=== PATIENT | male | born 1980 | race Caucasian/White ===

== ENCOUNTER 2016-09-24 18:49 | Emergency (ER) | payer OTHER ==
[2016-09-24 19:06] VITALS: BP 130/77
--- NOTE | 2016-09-24 19:27 | ER Document Report ---
ED Medical Screen (RME) - General Chief Complaint: Pain With Urination Stated Complaint: BURING WITH URINATION Notes: This 36-year-old [employer] comes emergency room complaining of burning on urination, dark urine despite drinking plenty of water, and generalized weakness. There is some nausea with no vomiting or diarrhea. Symptoms started about 3 hours ago. He initially had dark brown urine, then noticed the urine was cloudy and thick and painful running all the way through the urethra to the prostate. I have greeted and performed a rapid initial assessment of this patient. A comprehensive ED assessment and evaluation of the patient, analysis of test results and completion of the medical decision making process will be conducted by additional ED providers. TRAVEL OUTSIDE OF THE [place] IN LAST 30 DAYS: No - Related Data Allergies/Adverse Reactions: No Known Allergies Allergy (Verified 09/24/16 19:25) Past Medical History Renal/ Medical History: Denies: Hx Peritoneal Dialysis - Immunizations Immunizations up to date: Yes Physical Exam - Vital signs Vitals: Temp Pulse Resp BP Pulse Ox 98.2 F 78 14 130/77 H 99 09/24/16 19:02 09/24/16 19:02 09/24/16 19:02 09/24/16 19:02 09/24/16 19:02 Course - Vital Signs Vital signs: Temp Pulse Resp BP Pulse Ox 98.2 F 78 14 130/77 H 99 09/24/16 19:02 09/24/16 19:02 09/24/16 19:02 09/24/16 19:02 09/24/16 19:02
[2016-09-24 19:49] LABS: APPEARANCE,URINE SLIGHTLY-CLOUDY; BILIRUBIN,URINE NEGATIVE (NEGATIVE); GLUCOSE, URINE NEGATIVE (NEGATIVE); KETONES,URINE NEGATIVE (NEGATIVE); LEUKOCYTE ESTERASE,URINE NEGATIVE (NEGATIVE); NITRITE,URINE NEGATIVE (NEGATIVE); PROTEIN,URINE NEGATIVE (NEGATIVE); URINE SPECIFIC GRAVITY 1.024; UROBILINOGEN,URINE NEGATIVE mg/dL (<2.0)
--- NOTE | 2016-09-24 21:23 | ER Document Report ---
ED GI/ - General Chief Complaint: Pain With Urination Stated Complaint: BURING WITH URINATION Mode of Arrival: Ambulatory Information source: Patient Notes: 36 y/o well appearing Male presents to ED c/o dysuria and dark urine. Pt reports noted dark brown/tea colored urine this afternoon with associated dysuria, mild nausea, and generalized weakness. Reports during subsequent episode of urination noted urine was donor processor in color but appeared cloudy and thick and dysuria persisted. Reports donated blood yesterday but has not had an increase in activity or decreased PO fluid intake. Reports is sexually active in monogamous relationship with spouse. Denies fever, vomiting, penile discharge , flank pain, testicular pain or swelling. TRAVEL OUTSIDE OF THE [place] IN LAST 30 DAYS: No - HPI Patient complains to provider of: Dysuria Onset: This afternoon Timing/Duration: Intermittent, Better Quality of pain: Burning Severity at maximum: Moderate Severity in ED: Mild Pain Level: 2 Sexual history: Active, Unprotected intercourse. denies: New partner, Multiple partners Associated symptoms: Dysuria, Nausea. denies: Hematospermia, Penile discharge Similar symptoms previously: No Recently seen / treated by doctor: No - Related Data Allergies/Adverse Reactions: No Known Allergies Allergy (Verified 09/24/16 19:25) Home Medications: Current Home Medications No Home Medications 09/24/16 [History] Past Medical History - General Information source: Patient - Social History Smoking Status: Never Smoker Frequency of alcohol use: Rare Drug Abuse: None Lives with: Family Family History: Reviewed & Not Pertinent Patient has suicidal ideation: No Patient has homicidal ideation: No - Medical History Medical History: Negative Renal/ Medical History: Denies: Hx Peritoneal Dialysis Surgical Hx: Negative - Immunizations Immunizations up to date: Yes Hx Diphtheria, Pertussis, Tetanus Vaccination: Yes Review of Systems - Review of Systems Constitutional: See HPI EENT: No symptoms reported Cardiovascular: No symptoms reported Respiratory: No symptoms reported Gastrointestinal: No symptoms reported Genitourinary: See HPI Male Genitourinary: No symptoms reported Musculoskeletal: No symptoms reported Skin: No symptoms reported Hematologic/Lymphatic: No symptoms reported Neurological/Psychological: No symptoms reported -: Yes All other systems reviewed and negative Physical Exam - Vital signs Vitals: Temp Pulse Resp BP Pulse Ox 98.2 F 78 14 130/77 H 99 09/24/16 19:02 09/24/16 19:02 09/24/16 19:02 09/24/16 19:02 09/24/16 19:02 Interpretation: Normal - General General appearance: Appears well, Alert In distress: None - HEENT Head: Normocephalic, Atraumatic Eyes: Normal Pupils: PERRL - Respiratory Respiratory status: No respiratory distress Chest status: Nontender Breath sounds: Normal Chest palpation: Normal - Cardiovascular Rhythm: Regular Heart sounds: Normal auscultation Murmur: No Pulses: Normal: Radial Normal capillary refill: Yes - Abdominal Inspection: Normal Distension: No distension Bowel sounds: Normal Tenderness: Nontender. No: Tender, McBurney's point, Junior's sign, Guarding, Rebound, Other Organomegaly: No organomegaly - Genitourinary Inspection: Normal. No: Blood at meatus, Penile discharge Tenderness: Nontender. No: Testicle tender, Epididymis tender Cremasteric reflex: Normal Scrotum: Normal. No: Swelling, Redness, Hot to touch - Back Back: Normal, Nontender. No: CVA tenderness - Extremities General upper extremity: Normal inspection, Nontender, Normal color, Normal ROM , Normal temperature General lower extremity: Normal inspection, Nontender, Normal color, Normal ROM , Normal temperature, Normal weight bearing. No: Onur's sign - Neurological Neuro grossly intact: Yes Cognition: Normal Orientation: AAOx4 Mandie Coma Scale Eye Opening: Spontaneous [place] Coma Scale Verbal: Oriented Mandie Coma Scale Motor: Obeys Commands [place] Coma Scale Total: 15 Speech: Normal Motor strength normal: LUE, RUE, LLE, RLE Sensory: Normal - Psychological Associated symptoms: Normal affect, Normal mood - Skin Skin Temperature: Warm Skin Moisture: Dry Skin Color: Normal Course - Re-evaluation Re-evalutation: 09/24/16 23:50 Patient hemodynamically stable, in no distress, afebrile, neurologically intact. Patient tolerating oral fluids without difficulty or vomiting. Patient 's labs unremarkable and Chlamydia/gonorrhea negative. No suggestion rhabdomyolysis. physical exam unremarkable. Will treat for possible mild nonspecific urethritis at this time and provided contact information for follow- up with urology. Patient appears stable for discharge and agrees with home care , follow-up, and ED return precautions. Patient presentation, findings, and plan discussed with ED physician Dr. Armas who concurs with evaluation and treatment. - Vital Signs Vital signs: Temp Pulse Resp BP Pulse Ox 98.2 F 78 14 130/77 H 99 09/24/16 19:02 09/24/16 19:02 09/24/16 19:02 09/24/16 19:02 09/24/16 19:02 - Laboratory Result Diagrams: 09/24/16 21:10 Discharge - Discharge Clinical Impression: Dysuria, Urethritis, nonspecific Condition: Stable Disposition: HOME, SELF-CARE Instructions: Normal Exam and Workup ([facility]), Azithromycin ([facility]) Additional Instructions: Your results today were negative for urinary tract infection or sexually transmitted disease and your kidney function laboratory tests were normal. Drink plenty of fluids. Follow-up with your primary care provider and urology this week. Return to the emergency department for any worsening symptoms or concerns. Forms: Elevated Blood Pressure, Return to Work Referrals: [facility] [Provider Group] - Follow up in 3-5 days
[2016-09-24 21:43] LABS: ALANINE AMINOTRANSFERASE 34 U/L (21-72); ALBUMIN 4.6 g/dL (3.5-5.0); ALKALINE PHOSPHATASE 71 U/L (38-126); ANION GAP 13 (5-19); ASPARTATE AMINO TRANSFERASE 19 U/L (17-59); BLOOD UREA NITROGEN 13 mg/dL (7-20); CALCIUM 9.9 mg/dL (8.4-10.2); CARBON DIOXIDE 29 mmol/L (22-30); CHLORIDE 100 mmol/L (98-107); CREATINE KINASE 65 U/L (55-170); CREATININE RESULT 0.85 mg/dL (0.52-1.25); GLUCOSE 98 mg/dL (75-110); POTASSIUM 4.5 mmol/L (3.6-5.0); SODIUM 141.8 mmol/L (137-145)
[2016-09-24 22:54] LABS: CHLAM PCR NOT DETECTED (NOT DETECT)
[2016-09-25] MEDS ORDERED: AZITHROMYCIN 250 MG TABLET PO ONE (00:02)
== END 2016-09-25 00:26 | disposition home or self-care (01) ==
LOC: ER 18:49
DX: R30.0 Dysuria (principal); N34.1 Nonspecific urethritis; R11.0 Nausea; R53.1 Weakness
CPT/HCPCS: 36415; 80053; 81001; 82550; 87086; 87491; 87591; 99285

== ENCOUNTER → 2018-01-29 | Day surgery (SDC) | payer OTHER ==
--- NOTE | 2018-01-29 16:30 | RADIOLOGY REPORT (SQ) ---
EXAM DESCRIPTION: ARTHRO HIP INJ W/ANESTHESIA; FLUORO/NEEDLE PLACEMENT COMPLETED DATE/TIME: 01/29/2018 4:12 pm REASON FOR STUDY: PAIN IN LEFT HIP COMPARISON: None. FLUOROSCOPY TIME: 0.64 minutes. 1 images saved to PACS. LIMITATIONS: None. PROCEDURE: Procedure, risks, benefits and alternatives explained to patient who then gave written c onsent. The left hip was marked and a time-out was called for correct marking verification. Entry s ite marked using fluoroscopic guidance. Hip prepped and draped using sterile technique. Local anes thesia achieved using 1% lidocaine injection. Hypodermic needle introduced into the joint space und er direct fluoroscopic visualization. Non-ionic contrast instilled to confirm intra-articular positi on. Dilute gadolinium solution then injected. Needle removed and entry site covered with sterile b andage. No immediate complications noted. TECHNIQUE: Digital images acquired during fluoroscopy and stored on PACS. Patient immediately take n to the MR suite for additional imaging. INJECTION LOCATION: Left hip. CONTRAST TYPE AND AMOUNT: 1 mL Isovue and 10 mL Prohance/Saline mixture. IMPRESSION: SUCCESSFUL NEEDLE PLACEMENT AND INJECTION FOR LEFT HIP MR ARTHROGRAM. COMMENT: Quality ID [id number]: Final reports for procedures using fluoroscopy that document radiation exp osure indices, or exposure time and number of fluorographic images (if radiation exposure indices are not available) TECHNICAL DOCUMENTATION: JOB ID: [id number] [employer]- All Rights Reserved Reading location - IP/workstation name: [email or web address]
--- NOTE | 2018-01-29 16:30 | RADIOLOGY REPORT (SQ) ---
EXAM DESCRIPTION: ARTHRO HIP INJ W/ANESTHESIA; FLUORO/NEEDLE PLACEMENT COMPLETED DATE/TIME: 01/29/2018 4:12 pm REASON FOR STUDY: PAIN IN LEFT HIP COMPARISON: None. FLUOROSCOPY TIME: 0.64 minutes. 1 images saved to PACS. LIMITATIONS: None. PROCEDURE: Procedure, risks, benefits and alternatives explained to patient who then gave written c onsent. The left hip was marked and a time-out was called for correct marking verification. Entry s ite marked using fluoroscopic guidance. Hip prepped and draped using sterile technique. Local anes thesia achieved using 1% lidocaine injection. Hypodermic needle introduced into the joint space und er direct fluoroscopic visualization. Non-ionic contrast instilled to confirm intra-articular positi on. Dilute gadolinium solution then injected. Needle removed and entry site covered with sterile b andage. No immediate complications noted. TECHNIQUE: Digital images acquired during fluoroscopy and stored on PACS. Patient immediately take n to the MR suite for additional imaging. INJECTION LOCATION: Left hip. CONTRAST TYPE AND AMOUNT: 1 mL Isovue and 10 mL Prohance/Saline mixture. IMPRESSION: SUCCESSFUL NEEDLE PLACEMENT AND INJECTION FOR LEFT HIP MR ARTHROGRAM. COMMENT: Quality ID [id number]: Final reports for procedures using fluoroscopy that document radiation exp osure indices, or exposure time and number of fluorographic images (if radiation exposure indices are not available) TECHNICAL DOCUMENTATION: JOB ID: [id number] [employer]- All Rights Reserved Reading location - IP/workstation name: [email or web address]
--- NOTE | 2018-01-30 15:24 | RADIOLOGY REPORT (SQ) ---
EXAM DESCRIPTION: MRI LT LOWER JOINT WITH COMPLETED DATE/TIME: 01/29/2018 5:36 pm REASON FOR STUDY: PAIN IN LEFT HIP COMPARISON: None. TECHNIQUE: Post arthrogram imaging is performed using T1 and T1 and T2 fat saturated sequences of th e pelvis and specific hip of interest. LIMITATIONS: None. FINDINGS: JOINT DISTENSION: Adequate. No loose body. BONE MARROW: No edema. No marrow replacement. FEMORAL HEAD, NECK, AND ACETABULUM: No occult fracture. No osteophytes or subchondral cysts. Normal s phericity of femoral head/neck junction. No acetabular dysplasia. No evidence of femoroacetabular imp ingement. PUBIC RAMI AND ISCHIUM: No occult fracture. SACRUM AND SULEIMAN: SI joints normal in signal. No occult fracture. EFFUSIONS: None. LABRUM AND CARTILAGE: Full thickness tear of the anterior superior labrum. Underlying cartilage is i ntact. MUSCLES AND SOFT TISSUES: Adductors and piriformis normal. Abductors and greater trochanteric bursa n ormal without edema or fluid. Iliopsoas bursa without fluid. Hamstring attachments without edema or t ear. PELVIC SOFT TISSUES: No masses or adenopathy. SCIATIC NERVE: Identified without masses. OTHER: No other significant finding. IMPRESSION: Anterior superior labral tear. TECHNICAL DOCUMENTATION: JOB ID: [id number] [employer]- All Rights Reserved Reading location - IP/workstation name: [email or web address]
== END ==
LOC: RAD 14:59
PROVIDERS: ATTEND Family Medicine
DX: M25.552 Pain in left hip (principal); S73.192A Other sprain of left hip, initial encounter; X58.XXXA Exposure to other specified factors, initial encounter
CPT/HCPCS: 27095; 77002